=== PATIENT | male | born 1995 | race Caucasian/White ===

== ENCOUNTER 2024-11-07 06:51 | Emergency (ER) | payer OTHER ==
[~2024-11-07] VITALS: Ht 170.2 cm; Wt 92.2 kg
[2024-11-07 09:30] VITALS: BP_DIAS 82
[2024-11-07] MEDS ORDERED: ROBI1CAP PO (10:15)
[2024-11-07] MEDS ORDERED: BENZ200C70 PO (10:15)
[2024-11-07 10:19] VITALS: BP_SYST 119; TEMP 98; O2SAT 96
== END 2024-11-07 10:25 | disposition home or self-care (01) ==
LOC: M ED 06:51
DX: R05.9 Cough, unspecified (principal); Z79.899 Other long term (current) drug therapy